=== PATIENT | male | born 1945 | race Caucasian/White ===

== ENCOUNTER 2021-11-14 14:26 | Inpatient (IN) | payer OTHER ==
[~2021-11-14] VITALS: Ht 172.7 cm; Wt 77.2 kg
[~2021-11-14 14:26] MED LIST: AMLO10 PO; ASPI81CH PO; ATOR20 PO; CHLO25B PO; Cardura4 MG; Colace100 MG PO; FINA5 PO; Inderal60 MG PO; Isosorbide Mono30 MG PO; LOSA50 PO; MELA3 PO; MIRALAX17 GM PO; PANT40 PO; SERT100 PO
[2021-11-14 14:52] LABS: BASOPHILS ABSOLUTE AUTO 0.03 K/mm3 (0.00-0.23); BASOPHILS PERCENT AUTO 1 % (0-2); EOSINOPHILS ABSOLUTE AUTO 0.16 K/mm3 (0.00-0.68); EOSINOPHILS PERCENT AUTO 3 % (0-6); Hematocrit 33.1 % (37.0-53.0); Hemoglobin 11.2 g/dL (13.5-17.5); IMMATURE GRAN ABSOLUTE AUTO 0.01 K/mm3 (0.00-0.10); IMMATURE GRAN PERCENT AUTO 0 % (0-1); LYMPHOCYTES PERCENT AUTO 24 % (21-46); MONOCYTES ABSOLUTE AUTO 0.57 K/mm3 (0.16-1.47); MONOCYTES PERCENT AUTO 11 % (4-13); Mean Corpuscular HGB 28.8 pg (26.0-34.0); Mean Corpuscular HGB Conc 33.8 g/dL (31.5-36.5); Mean Corpuscular Volume 85 fL (80-100); Mean Platelet Volume 9.3 fL (9.1-12.4); NEUTROPHILS ABSOLUTE AUTO 3.26 K/mm3 (1.96-9.15); NEUTROPHILS PERCENT AUTO 61 % (41-73); Platelet Count 229 K/mm3 (150-400); RDW Standard Deviation 40.4 fL (35.1-46.3); Red Blood Cell Count 3.89 M/mm3 (4.30-5.90); White Blood Cell Count 5.33 K/mm3 (4.00-11.30)
[2021-11-14 15:03] LABS: Albumin, Blood 3.4 g/dL (3.4-5.0); Bilirubin, Total 0.7 mg/dL (0.1-1.0); Bun/Creatinine Ratio 18.5 (12.0-20.0); Calcium, Blood 9.2 mg/dL (8.5-10.1); Creatinine, Blood 1.35 mg/dL (0.60-1.20); Globulin, Blood 3.3 g/dL (2.2-4.0); Potassium, Blood 3.1 mmol/L (3.5-5.5); Total Protein, Blood 6.7 g/dL (6.4-8.2)
[2021-11-14 18:33] LABS: CHOL/HDL RATIO 2.7; Cholesterol 117 mg/dL (50-200); HDL Cholesterol 43 mg/dL (>39); LDL/HDL RATIO 1.2; Low Density Lipoprotein Chol 51 mg/dL (0-110); Triglycerides 113 mg/dL (30-160); Very Low Density Lipoprot Chol 22 mg/dL (6-32)
[2021-11-14] MEDS ORDERED: HYDRA25 PO (20:03)
[2021-11-14] MEDS ORDERED: CARBIDOPA-LEVO1 EAC9 PO (20:05)
[2021-11-14] MEDS ORDERED: NIFE30ER PO (20:06)
[2021-11-14] MEDS ORDERED: ACET325 PO (21:36)
--- NOTE | 2021-11-15 02:29 | NUR ---
SHIFT SUMMARY 75 YR M ADMITTED ON 11/14/21 FOR C/O CHEST PAIN. FULL CODE. PT STATES THAT HE HAS NOT HAD ANY CHEST PAIN SINCE ARRIVING TO THE ED. HE IS A&O X 4 AND AMBULATES INDEPENDANTLY IN ROOM. HE IS BASICALLY HERE FOR OBSERVATION. AT BEDSIDE WHEN ADMITTED AND DAUGHTER ROSENDO WAS GIVEN AN UPDATE OVER THE PHONE. PT IS VERY PLEASANT AND COOPERATIVE. BED IN LOW POSITION AND CALL LIGHT WITHIN REACH.
[2021-11-15 05:09] LABS: BASOPHILS ABSOLUTE AUTO 0.05 K/mm3 (0.00-0.23); BASOPHILS PERCENT AUTO 1 % (0-2); EOSINOPHILS ABSOLUTE AUTO 0.29 K/mm3 (0.00-0.68); EOSINOPHILS PERCENT AUTO 4 % (0-6); Hematocrit 36.9 % (37.0-53.0); Hemoglobin 12.3 g/dL (13.5-17.5); IMMATURE GRAN ABSOLUTE AUTO 0.01 K/mm3 (0.00-0.10); IMMATURE GRAN PERCENT AUTO 0 % (0-1); LYMPHOCYTES ABSOLUTE AUTO 1.53 K/mm3 (0.84-5.20); LYMPHOCYTES PERCENT AUTO 24 % (21-46); MONOCYTES ABSOLUTE AUTO 0.72 K/mm3 (0.16-1.47); MONOCYTES PERCENT AUTO 11 % (4-13); Mean Corpuscular HGB 28.7 pg (26.0-34.0); Mean Corpuscular HGB Conc 33.3 g/dL (31.5-36.5); Mean Corpuscular Volume 86 fL (80-100); Mean Platelet Volume 9.4 fL (9.1-12.4); NEUTROPHILS ABSOLUTE AUTO 3.92 K/mm3 (1.96-9.15); NEUTROPHILS PERCENT AUTO 60 % (41-73); Platelet Count 227 K/mm3 (150-400); RDW Coefficient Variation 12.8 % (11.7-14.2); RDW Standard Deviation 39.9 fL (35.1-46.3); Red Blood Cell Count 4.29 M/mm3 (4.30-5.90); White Blood Cell Count 6.52 K/mm3 (4.00-11.30)
[2021-11-15 05:46] LABS: Bun/Creatinine Ratio 19.1 (12.0-20.0); Calcium, Blood 8.8 mg/dL (8.5-10.1); Creatinine, Blood 1.15 mg/dL (0.60-1.20); Potassium, Blood 3.6 mmol/L (3.5-5.5)
--- NOTE | 2021-11-15 13:00 | NUR ---
PT TAKEN TO [facility]130. WILL TX TO PCU 7. REPORT TO SHANE AT 1200. BELONGINGS SENT TO U 7 INCLUDING PHONE AND IPAD AND WATCH, CLOTHS.
--- NOTE | 2021-11-15 18:49 | NUR ---
[facility] / SHIFT SUMMARY PT BROUGHT TO PCU-07 [facility] BED FROM [facility] @ APPROX 1330. PT A&O X4. VSS. SPO2 > 92% ON RA. MONITOR SHOWING SB-SR, HR 50s-60s. PT BROUGHT BACK W/ TR BAND & ARM BOARD IN PLACE TO R RADIAL ACCESS SITE. THIS RN WAITED 3 HRS TO BEGIN TR BAND DEFLATION PROCESS PER HC NURSE RECOMMENDATION. THIS RN SLOWLY DEFLATING TR BAND, 2 MLS AIR AT A TIME W/ PT SITE BLEED. 2 MLS AIR REINSERTED + ADDITIONAL 1 ML AIR INSERTED INTO BAND W/ BLEEDING CESSATION. PT DIFFICULTY KEEPING R ARM STILL D/T PT REPORT OF PARKINSONS TREMORS. 2ND ARM BOARD APPLIED, ONE ARM BOARD ON EITHER SIDE OF WRIST. TR BAND DEFLATION STILL IN PROGRESS. MOTOR TEACHER TO CONTINUE TR BAND RECOVERY.
--- NOTE | 2021-11-16 05:59 | NUR ---
SHIFT SUMMARY PT AOX4 T/O NIGHT, BREATHING EVEN AND UNLABORED, SINUS DAISHA-SINUS TACH HR MID-HIGH 50'S-60'S. UP TO 70'S WITH AMBULATION TO BATHROOM. PT DENIED ANY CP UNTIL AROUND 2310. PT REPORTED 1-2/10 CP OVER L SIDE CHEST. HTN AT TIME OF CP. EKG PERFORMED AND X1 NITRO GIVEN. CP RESOLVED. PT FOUND TO HAVE SOME ORTHOSTATIC HYPOTENSION WHEN BP FELL FROM 180 SBP TO 140 SBP FROM LYING TO SITTING TO STANDING. 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 PT DENIED ANY FURTHER CP. TR BAND TAKEN OFF, NO ACTIVE BLEEDING. PT HAD INCREASING TREMORS NOTICEABLE UP TO 1-2 HR BEFORE CARBIDOPA MED DUE TO GIVE. PT STATES HE USUALLY TAKES EVERY 5 HRS AT HOME. PT AMBULATES TO BATHROOM INDEPENDENTLY.
--- NOTE | 2021-11-16 17:55 | NUR ---
END OF SHIFT SUMMARY: PATIENT HAS BEEN ALERT AND ORIENTED ON RA WITH NO COMPLAINTS OF CHEST PAIN/PRESSURE/SOB, PATIENT HAS BEEN PAIN FREE. NO CHEST PAIN WITH EXERTION. PATIENT TR BAND SITE RECOVERING WELL, NO SIGNS OF TENDERNESS OR HEMATOMA, SOFT. PATIENT UNDERSTANDS PLAN OF CARE, SEEN BY HORTICULTURE PROFESSOR, TOLERATED ALL MEDS THAT WERE GIVEN TODAY. IMDUR INCREASED TO 60MG, DID NOT GIVE HE ALREADY RECIEVED 30. PATIENT HAD A BM YESTERDAY PER STAFF, PATIENT WAS SHORTLY BACK FROM CATH AND DOES NOT REMEMBER. PATIENT HAS BEEN INDEPENDENT IN THE ROOM. PATIENT HAS NO CONCERNS OR QUESTIONS ABOUT PLAN OF CARE. WILL CONTINUE TO MONITOR UNTIL SHIFT CHANGE.
[2021-11-17 03:41] LABS: Hematocrit 35.2 % (37.0-53.0); Hemoglobin 11.9 g/dL (13.5-17.5); Mean Corpuscular HGB 28.7 pg (26.0-34.0); Mean Corpuscular HGB Conc 33.8 g/dL (31.5-36.5); Mean Corpuscular Volume 85 fL (80-100); Mean Platelet Volume 9.1 fL (9.1-12.4); Platelet Count 231 K/mm3 (150-400); RDW Coefficient Variation 12.7 % (11.7-14.2); Red Blood Cell Count 4.14 M/mm3 (4.30-5.90); White Blood Cell Count 6.28 K/mm3 (4.00-11.30)
[2021-11-17 04:05] LABS: Bun/Creatinine Ratio 16.3 (12.0-20.0); Calcium, Blood 8.9 mg/dL (8.5-10.1); Creatinine, Blood 1.23 mg/dL (0.60-1.20); Potassium, Blood 3.6 mmol/L (3.5-5.5)
--- NOTE | 2021-11-17 07:33 | NUR ---
SHIFT SUMMARY PT AOX4, BREATHING EVEN AND UNLABORED T/O SHIFT. SB 55-SR 70'S T/O SHIFT. DENIED CP. TREMOR PRESENT IN R ARM BETWEEN DOSES OF CARBIDOPA. PT'S URINE DARKENED IN COLOR TOWARDS LATER IN SHIFT FROM YELLOW TO ORANGE. ORDER OBTAINED FOR NS 200 MLS/HR. CONTINUES INFUSING.
--- NOTE | 2021-11-17 16:25 | NUR ---
END OF SHIFT SUMMARY: PATIENT HAS BEEN UNCHANGED EXCEPT FOR 2 STENTS PLACED IN THE CIRC, R RADIAL SITE AT THIS TIME HAS 6 CC LEFT. DENIES CHEST PAIN, SOME ACHE TO THE RIGHT RADIAL THEY USED A LONGER SHEALTH TO GET PAST THE SUBCLAVIAN. PATIENT HAS BEEN ON RA BM THIS AM. PATIENT FINISHED THE BAG OF FLUIDS FROM NIGHT RN. ARMBOARD X 2 ON RIGHT ARM, BLOOD PRESSURE NORMOTENSIVE FOR PATIENT, ALERT AND ORIENTED WITH NO CONCERNS AT THIS TIME. TENTATIVE DISCHARGE TOMORROW PENDING AM LABS AND SIGN OFF. WILL CONTINUE TO RECOVER SITE AND MONITOR PATIENT UNTIL SHIFT CHANGE.
--- NOTE | 2021-11-17 17:20 | NUR ---
patient has tr band off, tr band in place, no signs of bleeding, or olivia yi, will continue to monitor.
[2021-11-18 04:01] LABS: Hematocrit 33.8 % (37.0-53.0); Hemoglobin 11.5 g/dL (13.5-17.5); Mean Corpuscular HGB 29.1 pg (26.0-34.0); Mean Corpuscular Volume 86 fL (80-100); Mean Platelet Volume 9.1 fL (9.1-12.4); Platelet Count 245 K/mm3 (150-400); RDW Coefficient Variation 12.8 % (11.7-14.2); RDW Standard Deviation 39.7 fL (35.1-46.3); Red Blood Cell Count 3.95 M/mm3 (4.30-5.90); White Blood Cell Count 7.37 K/mm3 (4.00-11.30)
[2021-11-18 04:21] LABS: Alanine Aminotransfer (ALT/SGP <6 U/L (12-78); Albumin, Blood 3.1 g/dL (3.4-5.0); Albumin/Globulin Ratio 0.9 (0.8-1.8); Alk Phos 73 U/L (50-136); Anion Gap 4 mmol/L (6-16); Aspartate Aminotrans (AST/SGOT 18 U/L (12-37); Bilirubin, Total 0.6 mg/dL (0.1-1.0); Blood Urea Nitrogen 19 mg/dL (8-24); Bun/Creatinine Ratio 14.5 (12.0-20.0); CO2, Blood 28 mmol/L (21-32); Calcium, Blood 8.9 mg/dL (8.5-10.1); Chloride, Blood 108 mmol/L (98-108); Creatinine, Blood 1.31 mg/dL (0.60-1.20); Globulin, Blood 3.4 g/dL (2.2-4.0); Glomerular Filtration Rate 57 (60-); Glucose, Blood 129 mg/dL (70-99); Potassium, Blood 3.9 mmol/L (3.5-5.5); Sodium, Blood 140 mmol/L (136-145); Total Protein, Blood 6.5 g/dL (6.4-8.2)
--- NOTE | 2021-11-18 05:48 | NUR ---
SHIFT SUMMARY PT IS ALERT AND ORIENTED X4. THERE HAVE BEEN NO ACUTE CHANGES T/O THE NIGHT. VITALS ARE STABLE AND IS ON ROOM AIR WITH SATS ABOVE 92%. PT DENIES CHEST PAIN/PRESSURE OR SOB. RIGHT RADIAL SITE IS RECOVERED WITH OPSITE AND ARMBOARD IN PLACE. PT REPORTS PAIN OF 2/10 ON RIGHT WRIST. HE IS INDEPENDENT IN ROOM AND IS ABLE TO COMMUNICATE NEEDS. CALL LIGHT IS WITHIN REACH.
[2021-11-18] MEDS ORDERED: CARBIDOPA-LEVO1 EAC9 PO (13:13)
[2021-11-18] MEDS ORDERED: CLOP75 PO (13:14)
--- NOTE | 2021-11-18 14:11 | NUR ---
PT GIVEN VERBAL AND WRITTEN DISCHARGE INSTRUCTIONS, VERBALIZED UNDERSTANDING. DENIES QUESTIONS. IV DISCONTINUED, CATH INTACT. PT LEFT VIA W/C. STABLE AT TIME OF DISCHARGE.
--- NOTE | 2021-11-18 15:16 | NUR ---
DISCHARGE NOTE DISCHARGE INSTRUCTIONS GIVEN TO PT AND PT BY GAGE ARROYO RN. PT LEFT PCU AT APPROX. 1415 VIA WHEELCHAIR AND WAS ESCORTED BY RONDA LEWIS. PT WAS STABLE UPON DISCHARGE.
== END 2021-11-18 14:26 | disposition home or self-care (01) | DRG 246 ==
LOC: ER 14:26 → MEDS 14:27 → PCU 11-15 11:55
PROVIDERS: Emergency Medicine; Internal Medicine; ADMIT Family Medicine
PROC: 027035Z Dilation of Coronary Artery, One Artery with Two Drug-eluting Intraluminal Devices, Percutaneous Approach (ICD-10-PCS; principal; 2021-11-15)
PROC: 4A023N7 Measurement of Cardiac Sampling and Pressure, Left Heart, Percutaneous Approach (ICD-10-PCS; 2021-11-15)
PROC: B2111ZZ Fluoroscopy of Multiple Coronary Arteries using Low Osmolar Contrast (ICD-10-PCS; 2021-11-15)
PROC: B245ZZ3 Ultrasonography of Left Heart, Intravascular (ICD-10-PCS; 2021-11-15)
PROC: 027035Z Dilation of Coronary Artery, One Artery with Two Drug-eluting Intraluminal Devices, Percutaneous Approach (ICD-10-PCS; 2021-11-17)
DX: I25.10 Atherosclerotic heart disease of native coronary artery without angina pectoris (principal); G20 Parkinson's disease; F02.80 Dementia in other diseases classified elsewhere, unspecified severity, without behavioral disturbance, psychotic disturbance, mood disturbance, and anxiety; I12.9 Hypertensive chronic kidney disease with stage 1 through stage 4 chronic kidney disease, or unspecified chronic kidney disease; N18.30 Chronic kidney disease, stage 3 unspecified; D63.1 Anemia in chronic kidney disease; E87.6 Hypokalemia; Z86.73 Personal history of transient ischemic attack (TIA), and cerebral infarction without residual deficits; Z87.891 Personal history of nicotine dependence; Z85.53 Personal history of malignant neoplasm of renal pelvis; Z90.5 Acquired absence of kidney; Z90.49 Acquired absence of other specified parts of digestive tract; Z98.890 Other specified postprocedural states; Z88.8 Allergy status to other drugs, medicaments and biological substances; Z79.82 Long term (current) use of aspirin; Z79.899 Other long term (current) drug therapy
CPT/HCPCS: 36415; 71045; 76937; 80048; 80053; 80061; 83880; 84484; 85025; 85027; 85347; 92978; 93005; 93010; 93306; 93454; 99152; 99153; 99285-25; A9270; C1725; C1753; C1769; C1874; C1887; C1894; C9600; G0378; J0360; J1644; J2250; J3010; J7030; J7040; Q9967

== ENCOUNTER 2022-07-02 12:21 | Emergency (ER) | payer OTHER ==
[~2022-07-02] VITALS: Ht 180.3 cm; Wt 81.7 kg
[~2022-07-02 12:21] MED LIST changes: +ACET325 PO; +CARBIDOPA-LEVO1 EAC9 PO; +CLOP75 PO; +HYDRA25 PO; +NIFE30ER PO
[2022-07-02 12:45] LABS: Chloride (POC) 105 mmol/L (98-108); Creatinine (POC) 1.9 mg/dL (0.8-1.3); Glucose (ISTAT POC) 110 mg/dL (70-99); Hemoglobin (POC) 11.9 g/dL (13.5-17.5); Potassium (POC) 4.4 mmol/L (3.5-5.5); Sodium (POC) 140 mmol/L (135-148); Total CO2 (POC) 26 mmol/L (21-32)
[2022-07-02 13:07] LABS: BASOPHILS ABSOLUTE AUTO 0.05 K/mm3 (0.00-0.23); BASOPHILS PERCENT AUTO 1 % (0-2); EOSINOPHILS ABSOLUTE AUTO 0.14 K/mm3 (0.00-0.68); EOSINOPHILS PERCENT AUTO 3 % (0-6); IMMATURE GRAN ABSOLUTE AUTO 0.01 K/mm3 (0.00-0.10); IMMATURE GRAN PERCENT AUTO 0 % (0-1); LYMPHOCYTES ABSOLUTE AUTO 1.24 K/mm3 (0.84-5.20); LYMPHOCYTES PERCENT AUTO 23 % (21-46); MONOCYTES ABSOLUTE AUTO 0.54 K/mm3 (0.16-1.47); MONOCYTES PERCENT AUTO 10 % (4-13); Mean Corpuscular HGB 28.3 pg (26.0-34.0); Mean Corpuscular HGB Conc 32.4 g/dL (31.5-36.5); Mean Corpuscular Volume 87 fL (80-100); Mean Platelet Volume 9.3 fL (9.1-12.4); NEUTROPHILS ABSOLUTE AUTO 3.53 K/mm3 (1.96-9.15); NEUTROPHILS PERCENT AUTO 64 % (41-73); Platelet Count 253 K/mm3 (150-400); RDW Coefficient Variation 13.3 % (11.7-14.2); RDW Standard Deviation 42.5 fL (35.1-46.3); Red Blood Cell Count 4.24 M/mm3 (4.30-5.90); White Blood Cell Count 5.51 K/mm3 (4.00-11.30)
[2022-07-02 14:28] LABS: Albumin, Blood 3.2 g/dL (3.4-5.0); Albumin/Globulin Ratio 0.9 (0.8-1.8); Bilirubin, Total 0.7 mg/dL (0.1-1.0); Bun/Creatinine Ratio 13.1 (12.0-20.0); Creatinine, Blood 1.75 mg/dL (0.60-1.20); Globulin, Blood 3.7 g/dL (2.2-4.0); Potassium, Blood 4.5 mmol/L (3.5-5.5); Total Protein, Blood 6.9 g/dL (6.4-8.2)
== END 2022-07-02 19:36 | disposition home or self-care (01) ==
LOC: ER 12:21
PROVIDERS: Physician Assistant
DX: I10 Essential (primary) hypertension (principal); R07.89 Other chest pain; G20 Parkinson's disease; Z88.8 Allergy status to other drugs, medicaments and biological substances; Z79.899 Other long term (current) drug therapy; Z79.82 Long term (current) use of aspirin; Z87.891 Personal history of nicotine dependence
CPT/HCPCS: 71046; 80047; 80053; 83735; 84484; 85014; 85025; 93005; 93010; 99284-25; A9270; J0282; J7060

== ENCOUNTER 2022-10-16 12:18 | Emergency (ER) | payer OTHER ==
[~2022-10-16] VITALS: Ht 177.8 cm; Wt 81.7 kg
[2022-10-16 13:07] LABS: BASOPHILS ABSOLUTE AUTO 0.04 K/mm3 (0.00-0.23); BASOPHILS PERCENT AUTO 1 % (0-2); EOSINOPHILS ABSOLUTE AUTO 0.11 K/mm3 (0.00-0.68); EOSINOPHILS PERCENT AUTO 2 % (0-6); Hemoglobin 11.3 g/dL (13.5-17.5); IMMATURE GRAN ABSOLUTE AUTO 0.01 K/mm3 (0.00-0.10); IMMATURE GRAN PERCENT AUTO 0 % (0-1); LYMPHOCYTES ABSOLUTE AUTO 1.19 K/mm3 (0.84-5.20); LYMPHOCYTES PERCENT AUTO 26 % (21-46); MONOCYTES PERCENT AUTO 11 % (4-13); Mean Corpuscular HGB 27.4 pg (26.0-34.0); Mean Corpuscular HGB Conc 32.3 g/dL (31.5-36.5); Mean Corpuscular Volume 85 fL (80-100); Mean Platelet Volume 9.1 fL (9.1-12.4); NEUTROPHILS ABSOLUTE AUTO 2.73 K/mm3 (1.96-9.15); NEUTROPHILS PERCENT AUTO 60 % (41-73); Platelet Count 243 K/mm3 (150-400); RDW Coefficient Variation 13.1 % (11.7-14.2); RDW Standard Deviation 40.5 fL (35.1-46.3); Red Blood Cell Count 4.12 M/mm3 (4.30-5.90); White Blood Cell Count 4.58 K/mm3 (4.00-11.30)
[2022-10-16 13:29] LABS: Albumin, Blood 3.4 g/dL (3.4-5.0); Albumin/Globulin Ratio 0.9 (0.8-1.8); Bilirubin, Total 0.8 mg/dL (0.1-1.0); Bun/Creatinine Ratio 12.3 (12.0-20.0); Calcium, Blood 8.6 mg/dL (8.5-10.1); Creatinine, Blood 1.63 mg/dL (0.60-1.20); Globulin, Blood 3.6 g/dL (2.2-4.0); Potassium, Blood 4.2 mmol/L (3.5-5.5)
[2022-10-16 15:02] VITALS: BP 194/98
== END 2022-10-16 15:02 | disposition home or self-care (01) ==
LOC: ER 12:18
PROVIDERS: Emergency Medicine
DX: R07.89 Other chest pain (principal); G89.29 Other chronic pain; R00.1 Bradycardia, unspecified; I25.10 Atherosclerotic heart disease of native coronary artery without angina pectoris; I10 Essential (primary) hypertension; G20 Parkinson's disease; Z86.73 Personal history of transient ischemic attack (TIA), and cerebral infarction without residual deficits; Z85.528 Personal history of other malignant neoplasm of kidney; Z88.8 Allergy status to other drugs, medicaments and biological substances; Z79.82 Long term (current) use of aspirin; Z79.02 Long term (current) use of antithrombotics/antiplatelets; Z79.899 Other long term (current) drug therapy; Z87.891 Personal history of nicotine dependence
CPT/HCPCS: 71045; 80053; 84484; 85025; 93005; 93010; 99285-25

== ENCOUNTER → 2022-11-04 | Outpatient (CLI) | payer OTHER ==
[2022-11-04 18:45] LABS: Creatinine Urine 63.3 mg/dL (27.00-270.00); Protein, Urine Quantitative 114.6 mg/dL (0.0-11.9)
== END | disposition home or self-care (01) ==
LOC: LAB 11:42 → LAB SHORT 11:42
PROVIDERS: Internal Medicine Nephrology
DX: N18.30 Chronic kidney disease, stage 3 unspecified (principal); D63.1 Anemia in chronic kidney disease; N25.81 Secondary hyperparathyroidism of renal origin; E55.9 Vitamin D deficiency, unspecified; E78.00 Pure hypercholesterolemia, unspecified; D51.8 Other vitamin B12 deficiency anemias; D50.9 Iron deficiency anemia, unspecified; D52.8 Other folate deficiency anemias; R76.9 Abnormal immunological finding in serum, unspecified; R94.5 Abnormal results of liver function studies; R94.6 Abnormal results of thyroid function studies
CPT/HCPCS: 81050; 82043; 82570; 84156

== ENCOUNTER 2024-02-03 14:33 | Observation (INO) | payer OTHER ==
[~2024-02-03] VITALS: Ht 177.8 cm; Wt 73.0 kg
[~2024-02-03 14:33] MED LIST changes: +CARBIDOPA-LEVO1 EA15 PO
[2024-02-03 15:13] LABS: BASOPHILS ABSOLUTE AUTO 0.04 K/mm3 (0.00-0.23); BASOPHILS PERCENT AUTO 1 % (0-2); EOSINOPHILS ABSOLUTE AUTO 0.13 K/mm3 (0.00-0.68); EOSINOPHILS PERCENT AUTO 3 % (0-6); Hematocrit 31.3 % (37.0-53.0); Hemoglobin 9.3 g/dL (13.5-17.5); IMMATURE GRAN ABSOLUTE AUTO 0.01 K/mm3 (0.00-0.10); IMMATURE GRAN PERCENT AUTO 0 % (0-1); LYMPHOCYTES ABSOLUTE AUTO 1.16 K/mm3 (0.84-5.20); LYMPHOCYTES PERCENT AUTO 22 % (21-46); MONOCYTES ABSOLUTE AUTO 0.51 K/mm3 (0.16-1.47); MONOCYTES PERCENT AUTO 10 % (4-13); Mean Corpuscular HGB 21.9 pg (26.0-34.0); Mean Corpuscular HGB Conc 29.7 g/dL (31.5-36.5); Mean Corpuscular Volume 74 fL (80-100); Mean Platelet Volume 9.4 fL (9.1-12.4); NEUTROPHILS ABSOLUTE AUTO 3.42 K/mm3 (1.96-9.15); NEUTROPHILS PERCENT AUTO 65 % (41-73); Platelet Count 242 K/mm3 (150-400); RDW Coefficient Variation 17.3 % (11.7-14.2); RDW Standard Deviation 46.5 fL (35.1-46.3); Red Blood Cell Count 4.24 M/mm3 (4.30-5.90); White Blood Cell Count 5.27 K/mm3 (4.00-11.30)
[2024-02-03 15:29] LABS: Anion Gap 11 mmol/L (3-11); Blood Urea Nitrogen 31 mg/dL (8-24); Bun/Creatinine Ratio 15.1 (12.0-20.0); C-REACTIVE PROTEIN, EXT RANGE <0.290 mg/dL (0.000-0.300); CO2, Blood 25 mmol/L (21-32); Calcium, Blood 8.8 mg/dL (8.5-10.1); Chloride, Blood 111 mmol/L (98-108); Creatinine, Blood 2.05 mg/dL (0.60-1.20); Glomerular Filtration Rate 33 (60-); Glucose, Blood 138 mg/dL (70-99); Potassium, Blood 3.6 mmol/L (3.5-5.5); Sodium, Blood 143 mmol/L (136-145)
[2024-02-03] MEDS ORDERED: Aspirin 325 MG Tab PO ONE (18:45)
[2024-02-03] MEDS ORDERED: Clopidogrel Bisulfate 75 MG Tab PO ONE (18:45)
[2024-02-03] MEDS ORDERED: FLU VACC TS2024-25(6MOS UP)/PF 45 MCG/0.5 ML SYRINGE IM SCH (20:10)
[2024-02-03] MEDS ORDERED: Ondansetron HCl 2 MG / ML 2ML Vial IV PRN (20:15)
[2024-02-03] MEDS ORDERED: NS 1,000 ML IV SCH (20:15)
[2024-02-03] MEDS ORDERED: Acetaminophen 325 MG TABLET PO PRN (20:20)
[2024-02-03] MEDS ORDERED: FURO40 PO (20:46)
[2024-02-03] MEDS ORDERED: 1/2 NS 250ml250 ML (20:52)
[2024-02-03] MEDS ORDERED: CALC.25 PO (20:52)
[2024-02-03] MEDS ORDERED: NITRO-DUR1 EAC1 TOP (20:55)
[2024-02-03] MEDS ORDERED: NIFE90ER PO (20:57)
[2024-02-03] MEDS ORDERED: Inderal40 MG PO (20:58)
[2024-02-03] MEDS ORDERED: Isosorbide Mono30 MG PO (20:59)
[2024-02-03] MEDS ORDERED: HydrALAZINE HCl 25 MG Tab PO SCH (21:00)
[2024-02-03] MEDS ORDERED: Propranolol HCL 20 MG TAB PO SCH (21:00)
[2024-02-03] MEDS ORDERED: NIFEdipine 10 MG Cap PO SCH (21:00)
[2024-02-03] MEDS ORDERED: MELA3 PO (21:02)
[2024-02-03] MEDS ORDERED: LIDO5TO TOP (21:03)
[2024-02-03] MEDS ORDERED: Voltaren100 GM TOP (21:03)
[2024-02-03] MEDS ORDERED: OCUFLOX5 M8 BOTHEYES (21:04)
[2024-02-03 22:26] VITALS: BP 155/72
[2024-02-04] VITALS (8 sets, daily range): BP systolic 147–193; BP diastolic 77–95
[2024-02-04] MEDS ORDERED: Levodopa/Carbidopa 100 / 25 MG Tab PO SCH ×3 (02:12→21:00)
[2024-02-04] MEDS ORDERED: Entacapone 200 MG Tab PO SCH (02:14)
[2024-02-04 05:52] LABS: Hematocrit 29.4 % (37.0-53.0); Hemoglobin 8.6 g/dL (13.5-17.5); Mean Corpuscular HGB 21.6 pg (26.0-34.0); Mean Corpuscular HGB Conc 29.3 g/dL (31.5-36.5); Mean Corpuscular Volume 74 fL (80-100); Mean Platelet Volume 9.1 fL (9.1-12.4); Platelet Count 196 K/mm3 (150-400); RDW Coefficient Variation 17.3 % (11.7-14.2); RDW Standard Deviation 46.4 fL (35.1-46.3); Red Blood Cell Count 3.98 M/mm3 (4.30-5.90); White Blood Cell Count 4.59 K/mm3 (4.00-11.30)
[2024-02-04] MEDS ORDERED: Pantoprazole Sodium 40 MG Tab PO SCH (06:00)
--- NOTE | 2024-02-04 06:50 | NUR ---
Shift Summary Pt arrived to this unit from ED with dx of loss of vision in R eye. CTA scan of head shows abnormalities, plan is for an MRI today. His vision in his R eye is improving from it's worst point, at home he lost all vision and now it's blurry. He has a hx of CVA x5 according to him and his . His pupils did not respond to my pen light in the dark. His strength is equal on both sides, no slur, no facial droop, no weakness. He is AOx4 and independent in the room.
[2024-02-04 06:51] LABS: Bun/Creatinine Ratio 16.8 (12.0-20.0); Calcium, Blood 8.2 mg/dL (8.5-10.1); Creatinine, Blood 1.67 mg/dL (0.60-1.20); Potassium, Blood 3.5 mmol/L (3.5-5.5)
[2024-02-04] MEDS ORDERED: LIDO700A20 TOP (08:25)
[2024-02-04] MEDS ORDERED: SUPER B-50 COM1 EACH PO (08:26)
[2024-02-04] MEDS ORDERED: ATOR20 PO (08:27)
[2024-02-04] MEDS ORDERED: VITAMIN D31000 UNI1 PO (08:27)
[2024-02-04] MEDS ORDERED: C COMPLEX1000 M1 PO (08:29)
[2024-02-04] MEDS ORDERED: CARBIDOPA-LEVO1 EA17 PO (08:29)
[2024-02-04] MEDS ORDERED: PROCRIT40000 UNIT INJ (08:30)
[2024-02-04] MEDS ORDERED: NARCAN4 M1 (08:31)
[2024-02-04] MEDS ORDERED: Losartan Potassium 50 MG Tab PO SCH (09:00)
[2024-02-04] MEDS ORDERED: Propranolol HCL 20 MG TAB PO SCH (09:00)
[2024-02-04] MEDS ORDERED: Clopidogrel Bisulfate 75 MG Tab PO SCH (09:00)
[2024-02-04] MEDS ORDERED: Enoxaparin 40 MG/0.4 ML SYR SC SCH (09:00)
[2024-02-04] MEDS ORDERED: Atorvastatin 40 MG Tab PO SCH (09:00)
[2024-02-04] MEDS ORDERED: Aspirin 81 MG Chew PO SCH (09:00)
[2024-02-04] MEDS ORDERED: Melatonin 5 MG Tablet PO PRN (11:50)
[2024-02-04] MEDS ORDERED: Lidocaine 4% 1 Patch TOP SCH (12:00)
[2024-02-04] MEDS ORDERED: CLOP75 PO (13:06)
[2024-02-04] MEDS ORDERED: AMLO10 PO (13:38)
[2024-02-04] MEDS ORDERED: [UNRECOGNIZED DRUG - OTHER] PO SCH ×2 (14:00)
[2024-02-04] MEDS ORDERED: CARBIDOPA PO SCH ×2 (14:00)
[2024-02-04] MEDS ORDERED: AmLODIPine Besylate 5 MG Tab PO SCH (16:21)
--- NOTE | 2024-02-04 18:01 | NUR ---
DISCHARGE NOTE- PT WAS GIVEN VERBAL AND WRITTEN DISCHARGE INSTRUCTIONS AND ACKNOWLEDGED UNDERSTANDING OF THEM. IV AND TELE DC'D PRIOR TO DISCHARGE. PT EATING DINNER AND WILL BE ESCORTED OUT VIA WC. PT BP WAS HIGH MANUAL BP SHOWS 168/90. PT IS PLANNING TO SCHEDULE FOLLOW UPS [facility]. BILLS S&S OF DISTRESS NOTED AT THE TIME OF DISCHARGE.
[2024-02-04] MEDS ORDERED: Docusate Sodium 100 MG Cap PO SCH (21:00)
[2024-02-04] MEDS ORDERED: Levodopa/Carbidopa 100/25 MG Tab *CR PO SCH (21:00)
[2024-02-04] MEDS ORDERED: Isosorbide Mononitrate 60 MG TABCR PO SCH (21:00)
[2024-02-05] MEDS ORDERED: Nitroglycerin Patch 0.4 MG / HR TOP SCH (06:00)
[2024-02-05] MEDS ORDERED: Sertraline HCl 100 MG Tab PO SCH (09:00)
[2024-02-05] MEDS ORDERED: Furosemide 40 MG Tab PO SCH (09:00)
[2024-02-05] MEDS ORDERED: AmLODIPine Besylate 5 MG Tab PO SCH (09:00)
[2024-02-05] MEDS ORDERED: Finasteride 5 MG Tab PO SCH (09:00)
[2024-02-06] MEDS ORDERED: Calcitriol 0.25 MCG Cap PO SCH (09:00)
== END 2024-02-04 18:14 | disposition home or self-care (01) ==
LOC: ER 14:33 → MEDS 14:34
PROVIDERS: Emergency Medicine; Nurse Practitioner Acute Care; ADMIT Internal Medicine
DX: G43.109 Migraine with aura, not intractable, without status migrainosus (principal); H54.61 Unqualified visual loss, right eye, normal vision left eye; G20.A1 Parkinson's disease without dyskinesia, without mention of fluctuations; I25.10 Atherosclerotic heart disease of native coronary artery without angina pectoris; I63.9 Cerebral infarction, unspecified; I12.9 Hypertensive chronic kidney disease with stage 1 through stage 4 chronic kidney disease, or unspecified chronic kidney disease; N18.30 Chronic kidney disease, stage 3 unspecified; K21.9 Gastro-esophageal reflux disease without esophagitis; Z88.8 Allergy status to other drugs, medicaments and biological substances; N40.0 Benign prostatic hyperplasia without lower urinary tract symptoms
CPT/HCPCS: 36415; 70450; 70496; 70498; 70551; 80048; 85025; 85027; 85651; 86140; 93306; 96372; 99285-25; A9270; G0378; J1650; J7030; Q9967

== ENCOUNTER 2024-02-22 06:08 | Day surgery (SDC) | payer OTHER ==
[~2024-02-22] VITALS: Ht 177.8 cm; Wt 76.0 kg
[~2024-02-22 06:08] MED LIST changes: +1/2 NS 250ml250 ML; +C COMPLEX1000 M1 PO; +CALC.25 PO; +CARBIDOPA-LEVO1 EA17 PO; +FURO40 PO; +Inderal40 MG PO; +LIDO5TO TOP; +LIDO700A20 TOP; +NARCAN4 M1; +NIFE90ER PO; +NITRO-DUR1 EAC1 TOP; +OCUFLOX5 M8 BOTHEYES; +PROCRIT40000 UNIT INJ; +SUPER B-50 COM1 EACH PO; +VITAMIN D31000 UNI1 PO; +Voltaren100 GM TOP
[2024-02-22] MEDS ORDERED: Verapamil HCL 2.5 MG/ML 2ML Injection ONE (06:29)
[2024-02-22] MEDS ORDERED: NS 1,000 ML IV ONE ×2 (06:29→07:07)
[2024-02-22] MEDS ORDERED: Heparin Sodium 1000 Units/ML 10ML MDV ONE (06:29)
[2024-02-22] MEDS ORDERED: Nitroglycerin 2 MG/20 ML BTL ONE (06:29)
[2024-02-22] MEDS ORDERED: NS 250 ML IV ONE (06:29)
[2024-02-22] MEDS ORDERED: FentaNYL Citrate 50 MCG/ML 2 ML Injection ONE (07:07)
[2024-02-22] MEDS ORDERED: Midazolam HCl 1MG / ML 2ML Vial ONE (07:07)
[2024-02-22 07:15] LABS: BASOPHILS ABSOLUTE AUTO 0.06 K/mm3 (0.00-0.23); BASOPHILS PERCENT AUTO 1 % (0-2); EOSINOPHILS ABSOLUTE AUTO 0.19 K/mm3 (0.00-0.68); EOSINOPHILS PERCENT AUTO 4 % (0-6); Hematocrit 34.1 % (37.0-53.0); Hemoglobin 10.1 g/dL (13.5-17.5); IMMATURE GRAN ABSOLUTE AUTO 0.01 K/mm3 (0.00-0.10); IMMATURE GRAN PERCENT AUTO 0 % (0-1); LYMPHOCYTES ABSOLUTE AUTO 1.37 K/mm3 (0.84-5.20); LYMPHOCYTES PERCENT AUTO 27 % (21-46); MONOCYTES ABSOLUTE AUTO 0.61 K/mm3 (0.16-1.47); MONOCYTES PERCENT AUTO 12 % (4-13); Mean Corpuscular HGB Conc 29.6 g/dL (31.5-36.5); Mean Corpuscular Volume 74 fL (80-100); Mean Platelet Volume 9.2 fL (9.1-12.4); NEUTROPHILS PERCENT AUTO 56 % (41-73); Platelet Count 281 K/mm3 (150-400); RDW Coefficient Variation 17.6 % (11.7-14.2); Red Blood Cell Count 4.59 M/mm3 (4.30-5.90); White Blood Cell Count 5.04 K/mm3 (4.00-11.30)
[2024-02-22 07:22] LABS: Calcium, Blood 8.9 mg/dL (8.5-10.1); Creatinine, Blood 1.72 mg/dL (0.60-1.20); Potassium, Blood 3.4 mmol/L (3.5-5.5)
[2024-02-22 07:23] LABS: International Normalized Ratio 0.96; Prothrombin Time Results 10.3 Sec (9.7-11.5)
[2024-02-22] MEDS ORDERED: HydrALAZINE HCl 20 MG / ML 1ML Vial ONE ×2 (07:35→07:39)
[2024-02-22 08:21] VITALS: BP 147/61
[2024-02-22 08:30] VITALS: BP 135/66
[2024-02-22] MEDS ORDERED: Diovan320 MG PO (09:02)
[2024-02-22] MEDS ORDERED: CARV25 PO (09:03)
--- NOTE | 2024-02-22 09:19 | NUR ---
PATIENT TO RECOVER ROOM AT 0805 S/P DIAGNOSTIC CORONARY ANGIOGRAM. PT AWAKE AND ALERT, DENIES C/O PAIN. [facility] PER [facility] REQUEST. OFFICE WILL CALL WITH A FOLLOW UP APPOINTMENT. CMP IN ONE WEEK; OFFICE AWARE. RIGHT TR BAND SITE WNL, W/O SWELLING, BLEEDING, OR HEMATOMA. PT DENIES TNEDERNESS/CP. CIRC CHECK WNL. ATTMEPTED TO REMOVE AIR AT 0905; OOZING NOTED, AIR REPLACED. AIR REMOVED AT 0920 W/O BLLEDING, SWELLING, OR HEMATOMA.
[2024-02-22 09:22] VITALS: BP 122/59
[2024-02-22 09:30] VITALS: BP 122/55
[2024-02-22 09:45] VITALS: BP 110/54
[2024-02-22 10:00] VITALS: BP 126/48
--- NOTE | 2024-02-22 10:39 | NUR ---
TR BAND DEFLATED FULLY W/O ISSUE. TR BAND REMOVED ONE HOUR LATER. DRSG PLACED TO RIGHT RADIAL SITE PRIOR TO DC. VERBAL AND WRITTEN DC INFORMATION GIVEN TO PT AND PT'S WITH CLEAR UNDERSTANDING. VSS, PT JEET PO. WRIST IMMOBILIZER ON. PT ESCORTED OUT TO CARE OF VIA W/C AT 1035 IN STABLE CONDITION.
== END 2024-02-22 11:26 | disposition home or self-care (01) ==
LOC: MHTC 06:08
PROVIDERS: Student in an Organized Health Care Education/Training Program
DX: I25.119 Atherosclerotic heart disease of native coronary artery with unspecified angina pectoris (principal); I12.9 Hypertensive chronic kidney disease with stage 1 through stage 4 chronic kidney disease, or unspecified chronic kidney disease; N18.9 Chronic kidney disease, unspecified; G20.A1 Parkinson's disease without dyskinesia, without mention of fluctuations; I73.9 Peripheral vascular disease, unspecified; E78.5 Hyperlipidemia, unspecified; Z87.891 Personal history of nicotine dependence; Z95.5 Presence of coronary angioplasty implant and graft; Z79.82 Long term (current) use of aspirin; Z79.899 Other long term (current) drug therapy; Z88.8 Allergy status to other drugs, medicaments and biological substances; Z90.49 Acquired absence of other specified parts of digestive tract
CPT/HCPCS: 76937; 80048; 85025; 85610; 93454; 99152; 99153; C1769; C1887; C1894; J0360; J1644; J2250; J3010; J7030; J7050; Q9967